=== PATIENT | male | born 1960 | race Caucasian/White ===

== ENCOUNTER 2016-10-01 10:06 | Emergency (ER) | payer OTHER ==
[~2016-10-01] VITALS: Ht 175.3 cm; Wt 78.6 kg
[~2016-10-01 10:06] MED LIST: ADVAIR 250/501 DISK IH; ALBUTEROL SULF8.5 GM IH; AMOXICILLIN500 M1 PO; ASPIR-LOW81 MG PO; ATARAX,VISTARIL25 MG PO; COREG25 M1 PO; COUMADIN10 MG PO; Ceftin PO; KEFLEX500 MG PO; LIDOCAINE20 MG/1 M5 PO; LIPITOR20 MG PO; LISINOPRIL20 MG PO; LISINOPRIL40 MG PO; PREDNISONE20 MG PO; PREDNISONE50 MG PO; TENORMIN25 MG PO; Tenormin PO; ULTRAM50 MG PO; VENTOLIN HFA18 GM IH; WARFARIN SODIUM10 MG PO; ZANTAC300 MG PO; ZITHROMAX Z-PA250 MG PO
[2016-10-01] MEDS ORDERED: FLEXERIL10 MG PO (11:38)
[2016-10-01] MEDS ORDERED: LIDODERM 5% P1 PATCH TD (11:38)
[2016-10-01 11:59] VITALS: BP 146/96
== END 2016-10-01 12:01 | disposition home or self-care (01) ==
LOC: EME 10:06
DX: S46.812A Strain of other muscles, fascia and tendons at shoulder and upper arm level, left arm, initial encounter (principal); X58.XXXA Exposure to other specified factors, initial encounter; M54.12 Radiculopathy, cervical region; Z86.73 Personal history of transient ischemic attack (TIA), and cerebral infarction without residual deficits; I10 Essential (primary) hypertension; J44.9 Chronic obstructive pulmonary disease, unspecified; F17.200 Nicotine dependence, unspecified, uncomplicated
CPT/HCPCS: 99281; 99283

== ENCOUNTER 2017-08-03 07:18 | Day surgery (SDC) | payer OTHER ==
[~2017-08-03 07:18] MED LIST changes: +FLEXERIL10 MG PO; +IMDUR60 MG PO; +LIDODERM 5% P1 PATCH TD
[2017-08-03] MEDS ORDERED: ASPIRIN81 M2 PO (07:56)
[2017-08-03 08:23] LABS: INTER. NORMALIZED RATIO 1.2
== END 2017-08-03 13:45 | disposition home or self-care (01) ==
LOC: CATH 07:18
PROVIDERS: Internal Medicine Interventional Cardiology
DX: I25.10 Atherosclerotic heart disease of native coronary artery without angina pectoris (principal); I42.9 Cardiomyopathy, unspecified; I10 Essential (primary) hypertension; J44.9 Chronic obstructive pulmonary disease, unspecified; I35.0 Nonrheumatic aortic (valve) stenosis; I44.7 Left bundle-branch block, unspecified; E78.2 Mixed hyperlipidemia; I73.9 Peripheral vascular disease, unspecified; I67.89 Other cerebrovascular disease; Z95.2 Presence of prosthetic heart valve; Z86.73 Personal history of transient ischemic attack (TIA), and cerebral infarction without residual deficits; F17.210 Nicotine dependence, cigarettes, uncomplicated; Z79.82 Long term (current) use of aspirin
CPT/HCPCS: 85610; C1769; C1887; J1644; J2250; J3010; J7050